=== PATIENT | female | born 1935 | race Asian ===

== ENCOUNTER 2016-12-02 03:15 | Inpatient (IN) | payer OTHER ==
[2016-12-02] VITALS (7 sets, daily range): BP systolic 95–135; BP diastolic 42–83
[~2016-12-02] VITALS: Ht 154.9 cm; Wt 69.7 kg
[2016-12-02] MEDS ORDERED: SODIUM CHLORIDE 0.9% 1,000ML IVBOLUS ONE (03:30)
[2016-12-02] MEDS ORDERED: PIPERACILLIN/TAZO/PMX 3.375GM 50 ML IVPB ONE (03:30)
[2016-12-02] MEDS ORDERED: ACETAMINOPHEN 325 MG TABLET PO ONE (03:30)
[2016-12-02] MEDS ORDERED: LOSA100T6 PO (03:42)
[2016-12-02] MEDS ORDERED: CHLO25TA PO (03:42)
[2016-12-02] MEDS ORDERED: ATOR40TA78 PO (03:42)
[2016-12-02] MEDS ORDERED: FERR325T5 PO (03:42)
[2016-12-02] MEDS ORDERED: ATEN100T PO (03:42)
[2016-12-02] MEDS ORDERED: INSU300I SQ (03:42)
[2016-12-02] MEDS ORDERED: ACETAMINOPHEN 325 MG TABLET ONE (04:13)
[2016-12-02] MEDS ORDERED: PIPERACILLIN/TAZO/PMX 3.375GM 50 ML ONE (04:14)
[2016-12-02 04:18] LABS: HEMOGLOBIN 8.3 g/dL (11.7-16.4)
[2016-12-02 04:28] LABS: ASPARTATE AMINO TRANSFERASE 15 U/L (15-37); BLOOD UREA NITROGEN 81 mg/dL (7-18)
[2016-12-02 04:32] LABS: DIFF TOTAL CELLS COUNTED 100 CELL DIFF
[2016-12-02 04:33] LABS: VERIFY COUNTS? YES
[2016-12-02 04:34] LABS: ANISOCYTOSIS 1+; HYPOCHROMIA 1+; OVALOCYTES 1+
[2016-12-02 04:35] LABS: ECHINOCYTES 1+; SCHISTOCYTES 1+
[2016-12-02 04:36] LABS: LARGE PLATELETS 1+
[2016-12-02] MEDS ORDERED: VANCOMYCIN 1,000 MG in SODIUM CHLORIDE 0.9% 100 ML IV ONE (05:00)
[2016-12-02] MEDS ORDERED: INSULIN REGULAR 100 UNITS/ML, 3ML VIAL IVPush ONE (05:00)
[2016-12-02] MEDS ORDERED: FUROSEMIDE 40 MG/4 ML IVPush ONE (05:00)
[2016-12-02] MEDS ORDERED: VANCOMYCIN PER PHARMACY MC ONE (05:00)
[2016-12-02] MEDS ORDERED: SODIUM BICARB 8.4%, 50ML SYRINGE IVPush ONE (05:00)
[2016-12-02] MEDS ORDERED: FUROSEMIDE 40 MG/4 ML ONE (05:16)
[2016-12-02] MEDS ORDERED: SODIUM BICARB 8.4%, 50ML SYRINGE ONE (05:16)
[2016-12-02] MEDS ORDERED: INSULIN REGULAR 100 UNITS/ML, 3ML VIAL ONE (05:16)
[2016-12-02] MEDS ORDERED: ONDANSETRON 2MG/ML, 2ML IVP PRN (05:30)
[2016-12-02] MEDS ORDERED: BISACODYL 10 MG SUPP PR PRN (05:30)
[2016-12-02] MEDS ORDERED: DOXYCYCLINE 100 MG in DEXTROSE 5% 250 ML IV SCH (05:30)
[2016-12-02] MEDS ORDERED: DOCUSATE 100 MG CAPSULE PO PRN (05:30)
[2016-12-02] MEDS ORDERED: CEFTRIAXONE PMX 1GM/50ML 50 ML IV SCH (05:30)
[2016-12-02] MEDS ORDERED: POLYETHYLENE GLYCOL 17 GM PACKET PO PRN (05:30)
[2016-12-02] MEDS ORDERED: SODIUM CHLORIDE 0.9% 1,000 ML IV ONE (06:30)
[2016-12-02] MEDS ORDERED: SODIUM CHLORIDE 0.9% 1,000 ML IV SCH ×2 (07:02→07:30)
[2016-12-02] MEDS ORDERED: PIPERACILLIN/TAZO/PMX 3.375GM 50 ML IV SCH (07:30)
[2016-12-02] MEDS ORDERED: VANCOMYCIN PER PHARMACY MC PRN (07:30)
[2016-12-02] MEDS ORDERED: HEPARIN 5,000 UNITS/ML, 1ML ONE (07:32)
[2016-12-02] MEDS: HEPARIN 5,000 UNITS/ML, 1ML SQ SCH ×3 (07:35→21:11)
[2016-12-02] MEDS ORDERED: DEXTROSE 50%, 50ML SYRINGE IVPush ONE (08:00)
[2016-12-02 08:05] LABS: BLOOD UREA NITROGEN 73 mg/dL (7-18)
[2016-12-02 08:27] LABS: HEMOGLOBIN 6.4 g/dL (11.7-16.4)
[2016-12-02 08:30] LABS: DIFF TOTAL CELLS COUNTED 100 CELL DIFF
[2016-12-02] MEDS: SODIUM CHLORIDE 0.9% 1,000 ML IV SCH ×4 (08:30→21:10)
[2016-12-02 08:32] LABS: ANISOCYTOSIS 2+; MICROCYTOSIS 2+
[2016-12-02 08:33] LABS: HYPOCHROMIA 2+; OVALOCYTES 2+
[2016-12-02 08:34] LABS: SCHISTOCYTES 2+
[2016-12-02 08:36] LABS: LARGE PLATELETS 1+; POLYCHROMASIA 1+
[2016-12-02 08:38] LABS: SPHEROCYTES 1+
[2016-12-02 08:39] LABS: VERIFY COUNTS? YES
[2016-12-02] MEDS ORDERED: NOREPINEPHRINE 4 MG in SODIUM CHLORIDE 0.9% 246 ML IV PRN (09:00)
[2016-12-02] MEDS ORDERED: PHARMACOKINETIC CONSULTATION MC ONE (09:00)
[2016-12-02] MEDS ORDERED: PHARMACOKINETIC MONITORING MC PRN (09:00)
[2016-12-02] MEDS: SODIUM BICARB 8.4%,50ML SYR. 50 MEQ in SODIUM CHLORIDE 0.45% 1,000 ML IV SCH ×2 (09:05→16:10)
[2016-12-02] MEDS: INSULIN REGULAR 100 UNITS/ML, 3ML VIAL SQ-INSULIN SCH ×5 (09:30→21:13)
[2016-12-02 12:24] LABS: BLOOD UREA NITROGEN 73 mg/dL (7-18)
[2016-12-02] MEDS: PIPERACILLIN/TAZO/PMX 2.25GM 50 ML IV SCH ×2 (16:11→21:10)
[2016-12-02] MEDS: ACETAMINOPHEN 325 MG TABLET PO PRN (17:17)
[2016-12-02 17:31] LABS: OCCBLD OBC PASS
[2016-12-02 18:37] LABS: HEMOGLOBIN 11.4 g/dL (11.7-16.4)
[2016-12-03] MEDS: SODIUM CHLORIDE 0.9% 1,000 ML IV SCH ×2 (00:59→05:05)
[2016-12-03] MEDS: SODIUM BICARB 8.4%,50ML SYR. 50 MEQ in SODIUM CHLORIDE 0.45% 1,000 ML IV SCH (01:47)
[2016-12-03] MEDS: INSULIN REGULAR 100 UNITS/ML, 3ML VIAL SQ-INSULIN SCH ×6 (01:47→22:08)
[2016-12-03 04:52] LABS: HEMOGLOBIN 10.3 g/dL (11.7-16.4)
[2016-12-03 04:57] LABS: BLOOD UREA NITROGEN 71 mg/dL (7-18); TOTAL IRON BINDING CAPACITY 184 mcg/dL (250-450)
[2016-12-03] MEDS: PIPERACILLIN/TAZO/PMX 2.25GM 50 ML IV SCH ×3 (05:18→22:11)
[2016-12-03 05:37] LABS: DIFF TOTAL CELLS COUNTED 100 CELL DIFF
[2016-12-03 05:39] LABS: ANISOCYTOSIS 2+; MICROCYTOSIS 2+; VERIFY COUNTS? YES
[2016-12-03 05:40] LABS: HYPOCHROMIA 1+; POLYCHROMASIA 1+; SPHEROCYTES 1+
[2016-12-03 05:41] LABS: OVALOCYTES 2+
[2016-12-03 05:43] LABS: POIKILOCYTOSIS 1+; SCHISTOCYTES 2+
[2016-12-03 05:44] LABS: LARGE PLATELETS 1+
[2016-12-03] MEDS: HEPARIN 5,000 UNITS/ML, 1ML SQ SCH ×3 (06:21→22:11)
[2016-12-03] MEDS: SODIUM BICARB 8.4%,50ML SYR. 100 MEQ in SODIUM CHLORIDE 0.45% 1,000 ML IV SCH ×3 (12:18→23:40)
[2016-12-03] MEDS: FERROUS SULFATE 325 MG TABLET PO SCH ×2 (12:18→17:30)
[2016-12-03 23:16] VITALS: BP 186/79
[2016-12-04 01:18] VITALS: BP 181/79
[2016-12-04] MEDS: PIPERACILLIN/TAZO/PMX 2.25GM 50 ML IV SCH ×2 (04:14→12:30)
[2016-12-04] MEDS: HEPARIN 5,000 UNITS/ML, 1ML SQ SCH ×3 (04:56→20:45)
[2016-12-04 05:54] LABS: HEMOGLOBIN 10.5 g/dL (11.7-16.4)
[2016-12-04 06:37] VITALS: BP 170/75
[2016-12-04 07:07] LABS: BLOOD UREA NITROGEN 58 mg/dL (7-18)
[2016-12-04 07:16] VITALS: BP 150/77
[2016-12-04] MEDS: INSULIN REGULAR 100 UNITS/ML, 3ML VIAL SQ-INSULIN SCH ×4 (07:30→20:46)
[2016-12-04] MEDS: SODIUM BICARB 8.4%,50ML SYR. 100 MEQ in SODIUM CHLORIDE 0.45% 1,000 ML IV SCH ×2 (08:36→20:14)
[2016-12-04] MEDS: FERROUS SULFATE 325 MG TABLET PO SCH ×2 (09:00→18:11)
[2016-12-04] MEDS ORDERED: LOPERAMIDE 2 MG CAPSULE PO PRN (10:00)
[2016-12-04 13:07] VITALS: BP 178/87
[2016-12-04] MEDS ORDERED: CEFTRIAXONE PMX 1GM/50ML 50 ML IV SCH (15:00)
[2016-12-04 20:46] VITALS: BP 180/70
[2016-12-04] MEDS: LABETALOL 5MG/ML, 20ML IVPush PRN (22:08)
[2016-12-04 23:08] VITALS: BP 170/70
[2016-12-05 01:33] VITALS: BP 156/63
[2016-12-05] MEDS: HEPARIN 5,000 UNITS/ML, 1ML SQ SCH ×3 (06:08→21:35)
[2016-12-05] MEDS: INSULIN REGULAR 100 UNITS/ML, 3ML VIAL SQ-INSULIN SCH ×4 (07:00→21:35)
[2016-12-05 07:03] VITALS: BP 177/73
[2016-12-05 07:13] LABS: HEMOGLOBIN 9.8 g/dL (11.7-16.4)
[2016-12-05 07:14] LABS: BLOOD UREA NITROGEN 49 mg/dL (7-18)
[2016-12-05] MEDS: SODIUM BICARB 8.4%,50ML SYR. 100 MEQ in SODIUM CHLORIDE 0.45% 1,000 ML IV SCH (07:30)
[2016-12-05 08:20] LABS: ANISOCYTOSIS 2+; HYPOCHROMIA 1+; MICROCYTOSIS 2+; OVALOCYTES 2+; POIKILOCYTOSIS 1+; POLYCHROMASIA 1+; SCHISTOCYTES 2+; SPHEROCYTES 1+
[2016-12-05 08:24] LABS: LARGE PLATELETS 1+
[2016-12-05] MEDS ORDERED: LIDOCAINE GEL 2%, 5ML TP ONE (11:00)
[2016-12-05] MEDS: FERROUS SULFATE 325 MG TABLET PO SCH ×2 (11:41→16:30)
[2016-12-05 12:19] VITALS: BP 160/73
[2016-12-05] MEDS: LEVOFLOXACIN 500 MG TABLET PO SCH (15:34)
[2016-12-05 19:05] VITALS: BP 182/71
[2016-12-05 22:15] VITALS: BP 190/109
[2016-12-05] MEDS ORDERED: AMLODIPINE 5 MG TABLET PO ONE (22:30)
[2016-12-06] VITALS (7 sets, daily range): BP systolic 148–189; BP diastolic 70–93
[2016-12-06 04:48] LABS: HEMOGLOBIN 10.5 g/dL (11.7-16.4)
[2016-12-06 04:59] LABS: BLOOD UREA NITROGEN 41 mg/dL (7-18)
[2016-12-06 05:41] LABS: ANISOCYTOSIS 2+; HYPOCHROMIA 1+; MICROCYTOSIS 2+; OVALOCYTES 2+; POIKILOCYTOSIS 1+; POLYCHROMASIA 1+; SPHEROCYTES 1+
[2016-12-06 05:42] LABS: LARGE PLATELETS 1+; SCHISTOCYTES 2+
[2016-12-06] MEDS: HEPARIN 5,000 UNITS/ML, 1ML SQ SCH ×3 (06:29→22:30)
[2016-12-06] MEDS: INSULIN REGULAR 100 UNITS/ML, 3ML VIAL SQ-INSULIN SCH ×4 (06:31→21:32)
[2016-12-06] MEDS: FERROUS SULFATE 325 MG TABLET PO SCH ×2 (07:47→16:11)
[2016-12-06] MEDS: ATENOLOL 100 MG TABLET PO SCH ×2 (08:21→16:11)
[2016-12-06] MEDS: LABETALOL 5MG/ML, 20ML IVPush PRN (10:35)
[2016-12-06] MEDS: ACETAMINOPHEN 325 MG TABLET PO PRN (10:35)
[2016-12-06] MEDS: SODIUM CHLORIDE 0.9% 1,000 ML IV SCH ×2 (12:10→21:32)
[2016-12-06] MEDS: AMLODIPINE 5 MG TABLET PO SCH (12:10)
[2016-12-07 04:05] VITALS: BP 162/72
[2016-12-07] MEDS: SODIUM CHLORIDE 0.9% 1,000 ML IV SCH (04:06)
[2016-12-07 05:55] VITALS: BP 144/66
[2016-12-07] MEDS: HEPARIN 5,000 UNITS/ML, 1ML SQ SCH ×3 (05:55→22:16)
[2016-12-07] MEDS: ATENOLOL 100 MG TABLET PO SCH ×2 (05:57→17:16)
[2016-12-07 06:29] LABS: ASPARTATE AMINO TRANSFERASE 15 U/L (15-37); BLOOD UREA NITROGEN 34 mg/dL (7-18)
[2016-12-07] MEDS: INSULIN REGULAR 100 UNITS/ML, 3ML VIAL SQ-INSULIN SCH ×4 (07:00→21:03)
[2016-12-07 07:05] VITALS: BP 158/77
[2016-12-07] MEDS: FERROUS SULFATE 325 MG TABLET PO SCH ×2 (07:37→17:16)
[2016-12-07] MEDS: AMLODIPINE 5 MG TABLET PO SCH (07:37)
[2016-12-07 14:33] VITALS: BP 144/71
[2016-12-07] MEDS: LEVOFLOXACIN 500 MG TABLET PO SCH (14:38)
[2016-12-07 20:35] VITALS: BP 154/69
[2016-12-08 03:38] VITALS: BP 179/82
[2016-12-08 05:44] VITALS: BP 154/78
[2016-12-08] MEDS: HEPARIN 5,000 UNITS/ML, 1ML SQ SCH ×3 (05:45→22:25)
[2016-12-08] MEDS: ATENOLOL 100 MG TABLET PO SCH ×2 (05:45→18:05)
[2016-12-08] MEDS: INSULIN REGULAR 100 UNITS/ML, 3ML VIAL SQ-INSULIN SCH ×4 (06:57→22:23)
[2016-12-08 07:15] VITALS: BP 164/81
[2016-12-08] MEDS: FERROUS SULFATE 325 MG TABLET PO SCH ×2 (07:50→18:05)
[2016-12-08] MEDS: AMLODIPINE 5 MG TABLET PO SCH (07:50)
[2016-12-08 08:59] LABS: BLOOD UREA NITROGEN 30 mg/dL (7-18)
[2016-12-08 13:54] VITALS: BP 151/73
[2016-12-08 19:52] VITALS: BP 176/75
[2016-12-08 22:33] VITALS: BP 162/86
[2016-12-09 05:16] VITALS: BP 173/84
[2016-12-09] MEDS: HEPARIN 5,000 UNITS/ML, 1ML SQ SCH (05:22)
[2016-12-09] MEDS: ATENOLOL 100 MG TABLET PO SCH (05:22)
[2016-12-09] MEDS: INSULIN REGULAR 100 UNITS/ML, 3ML VIAL SQ-INSULIN SCH ×2 (05:22→12:26)
[2016-12-09 06:11] LABS: BLOOD UREA NITROGEN 29 mg/dL (7-18)
[2016-12-09 07:05] VITALS: BP 161/79
[2016-12-09] MEDS: FERROUS SULFATE 325 MG TABLET PO SCH (08:58)
[2016-12-09] MEDS: AMLODIPINE 5 MG TABLET PO SCH (08:58)
[2016-12-09] MEDS ORDERED: AMLO5TAB2 PO (10:57)
[2016-12-09] MEDS ORDERED: LEVO500T33 PO (10:58)
[2016-12-09 12:30] VITALS: BP 186/82
== END 2016-12-09 14:08 | disposition home health service (06) | DRG 871 ==
LOC: ED 05:01 → SUATTDRO 05:01 → EDIP 05:02 → ED 05:37 → CCU 10:19 → 4EST 12-03 23:01 → 3NW 12-05 01:00 → 4NOR 12-05 14:29 → DCLOUNGE 12-09 13:28
PROC: 30250N1 (ICD-10-PCS; principal; 2016-12-02)
PROC: 0T9B70Z Drainage of Bladder with Drainage Device, Via Natural or Artificial Opening (ICD-10-PCS; 2016-12-02)
DX: A41.9 Sepsis, unspecified organism (principal); R65.21 Severe sepsis with septic shock; E43 Unspecified severe protein-calorie malnutrition; N17.0 Acute kidney failure with tubular necrosis; N10 Acute pyelonephritis; E87.1 Hypo-osmolality and hyponatremia; E87.2 Acidosis; E11.65 Type 2 diabetes mellitus with hyperglycemia; E78.5 Hyperlipidemia, unspecified; I10 Essential (primary) hypertension; R31.9 Hematuria, unspecified; E87.5 Hyperkalemia; D50.9 Iron deficiency anemia, unspecified; E11.22 Type 2 diabetes mellitus with diabetic chronic kidney disease; E78.00 Pure hypercholesterolemia, unspecified; I12.9 Hypertensive chronic kidney disease with stage 1 through stage 4 chronic kidney disease, or unspecified chronic kidney disease; M19.90 Unspecified osteoarthritis, unspecified site; B96.20 Unspecified Escherichia coli [E. coli] as the cause of diseases classified elsewhere; N18.9 Chronic kidney disease, unspecified; K86.89 Other specified diseases of pancreas; Z83.3 Family history of diabetes mellitus; Z68.29 Body mass index [BMI] 29.0-29.9, adult
CPT/HCPCS: 36415; 71010; 76770; 80048; 80053; 80202; 81001; 82010; 82272; 82436; 82533; 82550; 82570; 82728; 82962; 83540; 83550; 83605; 84133; 84145; 84300; 84550; 85014; 85018; 85025; 85045; 86850; 86900; 86923; 87040; 87077; 87081; 87086; 87147; 87186; 87324; 93005; 96365; 96366; 96367; 96368; 96375; J0696; J1644; J1815; J2543; J3370; J7030; J7050; P9016

== ENCOUNTER 2016-12-20 11:29 | Inpatient (IN) | payer MEDICARE, OTHER ==
[~2016-12-20] VITALS: Ht 154.9 cm; Wt 75.5 kg
[~2016-12-20 11:29] MED LIST: AMLO5TAB2 PO; ATEN100T PO; ATOR40TA78 PO; CHLO25TA PO; FERR325T5 PO; INSU300I SQ; LEVO500T33 PO; LOSA100T6 PO
[2016-12-20] MEDS ORDERED: SODIUM CHLORIDE 0.9% 1,000 ML IV ONE ×2 (12:13→14:24)
[2016-12-20] MEDS ORDERED: SODIUM CHLORIDE FLUSH 10ML SYR IVF ONE (12:30)
[2016-12-20 13:04] LABS: HEMOGLOBIN 9.9 g/dL (11.7-16.4)
[2016-12-20 13:13] LABS: BLOOD UREA NITROGEN 57 mg/dL (7-18)
[2016-12-20 13:21] LABS: ANISOCYTOSIS 2+; HYPOCHROMIA 1+; MICROCYTOSIS 2+; OVALOCYTES 1+; POIKILOCYTOSIS 1+; POLYCHROMASIA 1+
[2016-12-20 13:22] LABS: LARGE PLATELETS 1+; SCHISTOCYTES 1+
[2016-12-20] MEDS ORDERED: SODIUM CHLORIDE FLUSH 10ML SYR IVF PRN (14:30)
[2016-12-20] MEDS ORDERED: SODIUM CHLORIDE 0.9% 1,000 ML IV SCH (14:39)
[2016-12-20] MEDS ORDERED: TEMAZEPAM 15 MG CAPSULE PO PRN (15:00)
[2016-12-20] MEDS ORDERED: ACETAMINOPHEN 325 MG TABLET PO PRN (15:00)
[2016-12-20] MEDS ORDERED: DOCUSATE 100 MG CAPSULE PO PRN (15:00)
[2016-12-20] MEDS ORDERED: POLYETHYLENE GLYCOL 17 GM PACKET PO PRN (15:00)
[2016-12-20] MEDS ORDERED: ENALAPRILAT 1.25 MG/ML, 2ML IVPush PRN (15:00)
[2016-12-20] MEDS ORDERED: ONDANSETRON 2MG/ML, 2ML IVP PRN (15:00)
[2016-12-20] MEDS ORDERED: OXYcodone IR 5MG TABLET PO PRN (15:00)
[2016-12-20] MEDS: INSULIN REGULAR 100 UNITS/ML, 3ML VIAL SQ-INSULIN SCH ×2 (16:00→21:20)
[2016-12-20] MEDS: ENOXAPARIN 30 MG/0.3 ML SQ SCH (17:00)
[2016-12-20 18:29] LABS: BLOOD UREA NITROGEN 56 mg/dL (7-18)
[2016-12-20] MEDS: INSULIN DETEMIR 100 UNITS/ML, PEN SQ-INSULIN SCH (21:19)
[2016-12-20] MEDS: ATORVASTATIN 40 MG TABLET PO SCH (21:20)
[2016-12-20 22:41] LABS: BLOOD UREA NITROGEN 56 mg/dL (7-18)
[2016-12-21 02:08] LABS: BLOOD UREA NITROGEN 54 mg/dL (7-18)
[2016-12-21] MEDS: SODIUM CHLORIDE 0.9% 1,000 ML IV SCH ×2 (03:35→14:33)
[2016-12-21 06:13] LABS: HEMOGLOBIN 9.3 g/dL (11.7-16.4)
[2016-12-21 06:22] LABS: ASPARTATE AMINO TRANSFERASE 15 U/L (15-37); BLOOD UREA NITROGEN 52 mg/dL (7-18)
[2016-12-21] MEDS: INSULIN REGULAR 100 UNITS/ML, 3ML VIAL SQ-INSULIN SCH ×4 (08:12→21:08)
[2016-12-21] MEDS: CEFTRIAXONE PMX 1GM/50ML 50 ML IV SCH (08:14)
[2016-12-21] MEDS: FERROUS SULFATE 325 MG TABLET PO SCH (09:43)
[2016-12-21] MEDS: AMLODIPINE 5 MG TABLET PO SCH (09:43)
[2016-12-21] MEDS: LOSARTAN 50MG TABLET PO SCH (09:43)
[2016-12-21] MEDS ORDERED: SODIUM CHLORIDE 0.9% 1,000 ML IV SCH (14:39)
[2016-12-21 14:47] LABS: BLOOD UREA NITROGEN 51 mg/dL (7-18)
[2016-12-21] MEDS: GUAIFENESIN 200 MG TABLET PO SCH ×2 (15:03→21:08)
[2016-12-21] MEDS: ENOXAPARIN 30 MG/0.3 ML SQ SCH (15:04)
[2016-12-21] MEDS ORDERED: SODIUM CHLORIDE 3% 500 ML IV SCH ×2 (18:00)
[2016-12-21] MEDS: INSULIN DETEMIR 100 UNITS/ML, PEN SQ-INSULIN SCH (21:00)
[2016-12-21] MEDS: ATORVASTATIN 40 MG TABLET PO SCH (21:08)
[2016-12-21] MEDS ORDERED: INSULIN DETEMIR 100 UNITS/ML, PEN SQ-INSULIN ONE (21:30)
[2016-12-22] MEDS: GUAIFENESIN 200 MG TABLET PO SCH ×4 (06:04→21:45)
[2016-12-22] MEDS: INSULIN REGULAR 100 UNITS/ML, 3ML VIAL SQ-INSULIN SCH ×4 (07:00→21:45)
[2016-12-22] MEDS: LOSARTAN 50MG TABLET PO SCH (07:46)
[2016-12-22] MEDS: CEFTRIAXONE PMX 1GM/50ML 50 ML IV SCH (07:46)
[2016-12-22] MEDS: FERROUS SULFATE 325 MG TABLET PO SCH (07:46)
[2016-12-22] MEDS: AMLODIPINE 5 MG TABLET PO SCH (07:46)
[2016-12-22 10:22] LABS: HEMOGLOBIN 9.1 g/dL (11.7-16.4)
[2016-12-22 10:31] LABS: BLOOD UREA NITROGEN 50 mg/dL (7-18)
[2016-12-22 10:52] LABS: ANISOCYTOSIS 2+; HYPOCHROMIA 2+; MICROCYTOSIS 2+
[2016-12-22 10:53] LABS: OVALOCYTES 1+; POIKILOCYTOSIS 1+; SCHISTOCYTES 1+
[2016-12-22] MEDS: ENOXAPARIN 30 MG/0.3 ML SQ SCH (16:16)
[2016-12-22 20:00] VITALS: BP 152/59
[2016-12-22] MEDS: INSULIN DETEMIR 100 UNITS/ML, PEN SQ-INSULIN SCH (21:44)
[2016-12-22] MEDS: ATORVASTATIN 40 MG TABLET PO SCH (21:45)
[2016-12-23 02:00] VITALS: BP 143/56
[2016-12-23 04:43] LABS: HEMOGLOBIN 9.1 g/dL (11.7-16.4)
[2016-12-23 04:51] VITALS: BP 152/68
[2016-12-23 04:54] LABS: ASPARTATE AMINO TRANSFERASE 14 U/L (15-37); BLOOD UREA NITROGEN 49 mg/dL (7-18)
[2016-12-23] MEDS: GUAIFENESIN 200 MG TABLET PO SCH ×4 (05:12→21:08)
[2016-12-23] MEDS: INSULIN REGULAR 100 UNITS/ML, 3ML VIAL SQ-INSULIN SCH ×4 (07:00→21:08)
[2016-12-23 07:48] VITALS: BP 148/80
[2016-12-23] MEDS: CEFTRIAXONE PMX 1GM/50ML 50 ML IV SCH (09:22)
[2016-12-23] MEDS: FERROUS SULFATE 325 MG TABLET PO SCH (09:47)
[2016-12-23] MEDS: AMLODIPINE 5 MG TABLET PO SCH (09:48)
[2016-12-23] MEDS: LOSARTAN 50MG TABLET PO SCH (09:48)
[2016-12-23 13:11] VITALS: BP 158/70
[2016-12-23] MEDS: ENOXAPARIN 30 MG/0.3 ML SQ SCH (16:56)
[2016-12-23 19:14] VITALS: BP 154/65
[2016-12-23] MEDS ORDERED: INSULIN DETEMIR 100 UNITS/ML, PEN SQ-INSULIN SCH (21:00)
[2016-12-23] MEDS: ATORVASTATIN 40 MG TABLET PO SCH (21:08)
[2016-12-23] MEDS: INSULIN DETEMIR 100 UNITS/ML, PEN SQ-INSULIN SCH (21:09)
[2016-12-24 02:09] VITALS: BP 154/66
[2016-12-24] MEDS: GUAIFENESIN 200 MG TABLET PO SCH ×4 (05:49→20:31)
[2016-12-24 06:20] LABS: HEMOGLOBIN 9.2 g/dL (11.7-16.4)
[2016-12-24 06:36] LABS: ASPARTATE AMINO TRANSFERASE 14 U/L (15-37); BLOOD UREA NITROGEN 43 mg/dL (7-18)
[2016-12-24] MEDS: INSULIN REGULAR 100 UNITS/ML, 3ML VIAL SQ-INSULIN SCH ×4 (07:00→20:27)
[2016-12-24 07:03] LABS: DIFF TOTAL CELLS COUNTED 100 CELL DIFF
[2016-12-24 07:06] LABS: ANISOCYTOSIS 2+; VERIFY COUNTS? YES
[2016-12-24 07:07] LABS: HYPOCHROMIA 1+; MICROCYTOSIS 2+
[2016-12-24 07:08] LABS: OVALOCYTES 1+; SCHISTOCYTES 1+
[2016-12-24 07:20] VITALS: BP 166/76
[2016-12-24] MEDS ORDERED: MAGNESIUM SULFATE PMX 2GM/50ML 50 ML IV ONE (08:00)
[2016-12-24] MEDS: CEFTRIAXONE PMX 1GM/50ML 50 ML IV SCH (08:03)
[2016-12-24] MEDS: LOSARTAN 50MG TABLET PO SCH (08:06)
[2016-12-24] MEDS: AMLODIPINE 5 MG TABLET PO SCH (08:06)
[2016-12-24] MEDS: FERROUS SULFATE 325 MG TABLET PO SCH (08:06)
[2016-12-24 13:10] VITALS: BP 157/65
[2016-12-24] MEDS: ENOXAPARIN 30 MG/0.3 ML SQ SCH (15:39)
[2016-12-24 19:30] VITALS: BP 148/72
[2016-12-24] MEDS: INSULIN DETEMIR 100 UNITS/ML, PEN SQ-INSULIN SCH (20:31)
[2016-12-24] MEDS: ATORVASTATIN 40 MG TABLET PO SCH (20:31)
[2016-12-25 01:26] VITALS: BP 155/69
[2016-12-25 04:49] LABS: BLOOD UREA NITROGEN 41 mg/dL (7-18)
[2016-12-25 05:32] LABS: DIFF TOTAL CELLS COUNTED 100 CELL DIFF
[2016-12-25 05:35] LABS: ANISOCYTOSIS 2+; MICROCYTOSIS 2+; VERIFY COUNTS? YES
[2016-12-25 05:36] LABS: ECHINOCYTES 1+; HYPOCHROMIA 1+; OVALOCYTES 1+; POIKILOCYTOSIS 1+; SCHISTOCYTES 1+
[2016-12-25 05:37] LABS: LARGE PLATELETS 1+
[2016-12-25] MEDS: GUAIFENESIN 200 MG TABLET PO SCH ×4 (05:56→22:10)
[2016-12-25 06:32] VITALS: BP 146/77
[2016-12-25] MEDS: INSULIN REGULAR 100 UNITS/ML, 3ML VIAL SQ-INSULIN SCH ×4 (07:00→20:19)
[2016-12-25] MEDS: AMLODIPINE 5 MG TABLET PO SCH (09:29)
[2016-12-25] MEDS: CEFTRIAXONE PMX 1GM/50ML 50 ML IV SCH (09:29)
[2016-12-25] MEDS: FERROUS SULFATE 325 MG TABLET PO SCH (09:29)
[2016-12-25] MEDS: LOSARTAN 50MG TABLET PO SCH (09:29)
[2016-12-25 13:39] VITALS: BP 158/72
[2016-12-25] MEDS: ENOXAPARIN 30 MG/0.3 ML SQ SCH (18:08)
[2016-12-25 18:57] VITALS: BP 154/74
[2016-12-25] MEDS: ATORVASTATIN 40 MG TABLET PO SCH (22:10)
[2016-12-25] MEDS: INSULIN DETEMIR 100 UNITS/ML, PEN SQ-INSULIN SCH (22:11)
[2016-12-26 02:35] VITALS: BP 157/77
[2016-12-26] MEDS: GUAIFENESIN 200 MG TABLET PO SCH ×2 (05:38→11:38)
[2016-12-26 05:43] LABS: BLOOD UREA NITROGEN 37 mg/dL (7-18)
[2016-12-26] MEDS: INSULIN REGULAR 100 UNITS/ML, 3ML VIAL SQ-INSULIN SCH ×2 (07:00→11:38)
[2016-12-26 07:54] VITALS: BP 169/76
[2016-12-26] MEDS: AMLODIPINE 5 MG TABLET PO SCH (09:06)
[2016-12-26] MEDS: FERROUS SULFATE 325 MG TABLET PO SCH (09:06)
[2016-12-26] MEDS: LOSARTAN 50MG TABLET PO SCH (09:07)
[2016-12-26] MEDS ORDERED: SODIUM BICARBONATE 650 MG TABLET PO SCH (13:00)
[2016-12-26] MEDS ORDERED: SODI650T PO (13:12)
[2016-12-26 13:37] VITALS: BP 156/75
== END 2016-12-26 15:33 | disposition home or self-care (01) | DRG 682 ==
LOC: ED 14:00 → OBSVTOIN 14:25 → INTOOBSV 14:25 → EDIP 14:25 → CCU 16:01 → 4WST 12-23 04:45
PROVIDERS: ADMIT Internal Medicine; ATTEND Internal Medicine
PROC: 0T9B70Z Drainage of Bladder with Drainage Device, Via Natural or Artificial Opening (ICD-10-PCS; principal; 2016-12-20)
DX: N17.9 Acute kidney failure, unspecified (principal); E43 Unspecified severe protein-calorie malnutrition; E22.2 Syndrome of inappropriate secretion of antidiuretic hormone; E87.1 Hypo-osmolality and hyponatremia; N39.0 Urinary tract infection, site not specified; I12.0 Hypertensive chronic kidney disease with stage 5 chronic kidney disease or end stage renal disease; E87.2 Acidosis; N18.5 Chronic kidney disease, stage 5; E11.22 Type 2 diabetes mellitus with diabetic chronic kidney disease; D50.0 Iron deficiency anemia secondary to blood loss (chronic); E78.5 Hyperlipidemia, unspecified; E78.00 Pure hypercholesterolemia, unspecified; E87.5 Hyperkalemia; Z79.4 Long term (current) use of insulin; Z87.440 Personal history of urinary (tract) infections; Z87.01 Personal history of pneumonia (recurrent); Z68.31 Body mass index [BMI] 31.0-31.9, adult
CPT/HCPCS: 36415; 71010; 80048; 80053; 81001; 82040; 82962; 83735; 83930; 83935; 84295; 84443; 85025; 87040; 87081; 87086; 93005; 96360; 96361; J0696; J1650; J1815; J3475; J7030